=== PATIENT | female | born 1955 | race Caucasian/White ===

== ENCOUNTER 2017-03-27 16:09 | Emergency (ER) | payer OTHER ==
--- NOTE | 2017-03-27 17:09 | DIAGNOSTIC IMAGING REPORT ---
PROCEDURE: XR WRIST MIN 3 VIEWS - LEFT INDICATION: PAIN TECHNIQUE: Five views of the left wrist. COMPARISON: None. FINDINGS: Normal mineralization. No fractures. Normal osseous alignment. No suspicious soft-tissue calcification or radiodense foreign bodies. IMPRESSION: 1. Intact left wrist.
--- NOTE | 2017-03-27 17:40 | ED ORDER SUMMARY ---
..... Patient: BERTHA TOSCANO OrderSheet [facility] VisitID: [id number] [address] [place] [address] 62y, F Registration Date/Time: 03/27/2017 ORDER SHEET Weight: 89.8 kg (stated) Allergies: GENERAL ORDERS: Wrist 3 or 4V Left Urgent (16:45 03/27/2017 Alex Hodgson) (Ack 16:46 Rashidrmichel) (16:58 Jer) Splint (UE) (Left) (Cock-up) (17:39 03/27/2017 Alex Hodgson) (17:58 Julienne R.N.) MEDICATION ORDERS: Toradol IM 60 mg (NOW) (16:45 03/27/2017 Alex Hodgson) (17:04 Joanna Núñez.NNoe) IV FLUIDS: ORDER SHEET NOTES: [Electronically signed by Cam Carrasco Dr. (17:45 03/27/2017)] [Electronically signed by Melissa Pompa R.N. (19:18 03/27/2017)] [Electronically locked/signed by Melissa Pompa R.N. (19:18 03/27/2017)]
--- NOTE | 2017-03-27 17:40 | ED CLINICAL REPORT ---
Clinical Report - Physicians/Mid Levels [facility] [address] [place] [address] 03/27/2017 16:11 [id number] Time Seen: 16:19; initial patient contact. Arrived- By private vehicle. Historian- patient. HISTORY OF PRESENT ILLNESS Chief Complaint: Injury to the wrist and left hand. The injury happened about 6 weeks ago. (No injury). Patient is experiencing moderate pain that has recently become worse. Patient denies injury to the head or neck. REVIEW OF SYSTEMS The patient has had swelling. No tingling, numbness or weakness. All systems otherwise negative, except as recorded above. PAST HISTORY Dvt. Thyroid Disease. Hypertension. Diabetes Mellitus. Depression. SURGERIES: Pituitary tumor removed. Tonsillectomy. ADDITIONAL NOTES The nursing notes have been reviewed. PHYSICAL EXAM Vital Signs: 03/27/2017 16:16 BP: 164/61. HR: 51. RR: 16. O2 saturation: 96%. Temp: 98.3 F. Pain level now: 07/01. Have been reviewed. Hypertensive. Bradycardic. Respiratory rate normal. Temperature normal. Oxygen saturation normal. Appearance: Alert. Oriented X3. No acute distress. Skin: Skin warm and dry. Skin intact. Extremities: Left wrist: moderate tenderness and mild swelling located in the area of the ulnar styloid. Limited ROM secondary to pain (diminished flexion and extension, ulnar deviation and radial deviation). Neurovascular intact distally. No erythema. Hand and wrist exam otherwise negative. Extremities otherwise negative. Neuro, Vascular and Tendons: Vascular status intact. Sensation intact. Motor intact. Tendon function intact. Neuro: Oriented X 3. No motor deficit. No sensory deficit. LABS, X-RAYS, AND EKG Lt Wrist X-ray: (Intact left wrist.). Views: AP, lateral, oblique and scaphoid. Technique: good. The X-rays were independently viewed by me, interpreted by the radiologist and discussed with the radiologist. Prior films were not available for comparison. PROGRESS AND PROCEDURES Disposition: Discharged home in good and improved condition. Condition: good. CLINICAL IMPRESSION Acute inflammatory tendonitis in the left wrist. INSTRUCTIONS Apply ice for 20 minutes five times a day until better. Don't apply ice directly to skin. Wear cock-up splint until released. Limit use of your left hand until released. Your Current Medications: CONTINUE TAKING THE FOLLOWING MEDICATIONS: Aspirin Oral : Tablet Chewable 81 mg, 1 tablet. Atenolol Oral : Tablet 50 mg, 1 tablet daily. Atorvastatin Calcium Oral : Tablet 80 mg, 1 tablet daily. Calcium* : 500 mg 3x a day. FLUoxetine HCl Oral : Capsule 20 mg, 1 capsule 3x a day. Gabapentin Oral : Capsule 300 mg, 2x a day. HCTZ* : 12.5mg daily. HumaLOG Subcutaneous. Lantus Subcutaneous : 48 units every PM. Levothyroxine Sodium Oral : Tablet 25 mcg, daily. Naproxen Oral : Tablet 500 mg, PRN. Pantoprazole Sodium Oral : Packet 40 mg, daily. TraZODone HCl Oral : Tablet 100 mg, 1-1/2 tablets at bedtime. Vicodin Oral : PRN. Vitamin B 12 Oral : 1000mcg daily. Vitamin D3 Oral : Tablet 2000 unit, 1 tablet daily. Zolpidem Tartrate Oral : Solution 5 mg/act, at bedtime, prn. Prescription Medications: Diclofenac 50 mg tablets: take 1 tablet orally every 8 hours as needed for pain or stiffness. Dispense thirty (30). No refill. Follow-up: Blood pressure screening was not performed during this visit because the patient has an active diagnosis of hypertension. [facility] , [address] [facility] [address] Follow up in about four days. Call for an appointment. (Electronically signed by Cam Carrasco Dr. 03/27/2017 17:45)
--- NOTE | 2017-03-27 17:40 | ED CLINICAL REPORT ---
Clinical Report - Physicians/Mid Levels [facility] [address] [place] [address] 03/27/2017 16:11 [id number] Time Seen: 16:19; initial patient contact. Arrived- By private vehicle. Historian- patient. HISTORY OF PRESENT ILLNESS Chief Complaint: Injury to the wrist and left hand. The injury happened about 6 weeks ago. (No injury). Patient is experiencing moderate pain that has recently become worse. Patient denies injury to the head or neck. REVIEW OF SYSTEMS The patient has had swelling. No tingling, numbness or weakness. All systems otherwise negative, except as recorded above. PAST HISTORY Dvt. Thyroid Disease. Hypertension. Diabetes Mellitus. Depression. SURGERIES: Pituitary tumor removed. Tonsillectomy. ADDITIONAL NOTES The nursing notes have been reviewed. PHYSICAL EXAM Vital Signs: 03/27/2017 16:16 BP: 164/61. HR: 51. RR: 16. O2 saturation: 96%. Temp: 98.3 F. Pain level now: 07/01. Have been reviewed. Hypertensive. Bradycardic. Respiratory rate normal. Temperature normal. Oxygen saturation normal. Appearance: Alert. Oriented X3. No acute distress. Skin: Skin warm and dry. Skin intact. Extremities: Left wrist: moderate tenderness and mild swelling located in the area of the ulnar styloid. Limited ROM secondary to pain (diminished flexion and extension, ulnar deviation and radial deviation). Neurovascular intact distally. No erythema. Hand and wrist exam otherwise negative. Extremities otherwise negative. Neuro, Vascular and Tendons: Vascular status intact. Sensation intact. Motor intact. Tendon function intact. Neuro: Oriented X 3. No motor deficit. No sensory deficit. LABS, X-RAYS, AND EKG Lt Wrist X-ray: (Intact left wrist.). Views: AP, lateral, oblique and scaphoid. Technique: good. The X-rays were independently viewed by me, interpreted by the radiologist and discussed with the radiologist. Prior films were not available for comparison. PROGRESS AND PROCEDURES Disposition: Discharged home in good and improved condition. Condition: good. CLINICAL IMPRESSION Acute inflammatory tendonitis in the left wrist. INSTRUCTIONS Apply ice for 20 minutes five times a day until better. Don't apply ice directly to skin. Wear cock-up splint until released. Limit use of your left hand until released. Your Current Medications: CONTINUE TAKING THE FOLLOWING MEDICATIONS: Aspirin Oral : Tablet Chewable 81 mg, 1 tablet. Atenolol Oral : Tablet 50 mg, 1 tablet daily. Atorvastatin Calcium Oral : Tablet 80 mg, 1 tablet daily. Calcium* : 500 mg 3x a day. FLUoxetine HCl Oral : Capsule 20 mg, 1 capsule 3x a day. Gabapentin Oral : Capsule 300 mg, 2x a day. HCTZ* : 12.5mg daily. HumaLOG Subcutaneous. Lantus Subcutaneous : 48 units every PM. Levothyroxine Sodium Oral : Tablet 25 mcg, daily. Naproxen Oral : Tablet 500 mg, PRN. Pantoprazole Sodium Oral : Packet 40 mg, daily. TraZODone HCl Oral : Tablet 100 mg, 1-1/2 tablets at bedtime. Vicodin Oral : PRN. Vitamin B 12 Oral : 1000mcg daily. Vitamin D3 Oral : Tablet 2000 unit, 1 tablet daily. Zolpidem Tartrate Oral : Solution 5 mg/act, at bedtime, prn. Prescription Medications: Diclofenac 50 mg tablets: take 1 tablet orally every 8 hours as needed for pain or stiffness. Dispense thirty (30). No refill. Follow-up: Blood pressure screening was not performed during this visit because the patient has an active diagnosis of hypertension. [facility] with: [facility], , [address] [facility], [address] Follow up in about four days. Call for an appointment. (Electronically signed by Cam Carrasco Dr. 03/27/2017 17:45)
--- NOTE | 2017-03-27 17:40 | ED NURSING NOTES ---
Clinical Report - Nurses [facility] [address] [place] [address] 03/27/2017 16:11 [id number] Triage time 16:15 Mar 27 2017. Acuity: LEVEL 3. Chief Complaint: RIGHT UPPER EXTREMITY PAIN and SWELLING. LEFT UPPER EXTREMITY PAIN and SWELLING. Alert. No acute distress. SEPSIS SCREEN: Sepsis Screen. Negative (no infection suspected/documented). --16:36 Veronica Stock R.N. 16:16 03/27/17. BP: 164/61. HR: 51. RR: 16. O2 saturation: 96%. Temp: 98.3 F. Pain level now: 07/01. --16:36 Veronica Stock R.N. Weight: 89.8 kg stated. Height/Length: 64.7 inches Per Patient. BMI: 33.3. --16:36 Veronica Stock R.N. Medications Vicodin Oral, PRN. --16:23 Veronica Stock R.N. Aspirin Oral (Tablet Chewable 81 mg) 1 tablet. --16:23 Veronica Stock R.N. Atenolol Oral (Tablet 50 mg) 1 tablet, daily. --16:24 Veronica Stock R.N. Atorvastatin Calcium Oral (Tablet 80 mg) 1 tablet, daily. --16:24 Veronica Stock R.N. Calcium 500 mg, 3x a day. --16:24 Veronica Stock R.N. FLUoxetine HCl Oral (Capsule 20 mg) 1 capsule, 3x a day. --16:25 Veronica Stock R.N. Gabapentin Oral (Capsule 300 mg), 2x a day. --16:25 Veronica Stock R.N. HumaLOG Subcutaneous. --16:26 Veronica Stock R.N. Lantus Subcutaneous 48 units, every PM. --16:27 Veronica Stock R.N. Levothyroxine Sodium Oral (Tablet 25 mcg), daily. --16:27 Veronica Stock R.N. Naproxen Oral (Tablet 500 mg), PRN. --16:27 Veronica Stock R.N. HCTZ 12.5mg, daily. --16:28 Veronica Stock R.N. Pantoprazole Sodium Oral (Packet 40 mg), daily. --16:29 Veronica Stock R.N. Vitamin B 12 Oral 1000mcg, daily. --16:29 Veronica Stock R.N. Vitamin D3 Oral (Tablet 2000 unit) 1 tablet, daily. --16:29 Veronica Stock R.N. Zolpidem Tartrate Oral (Solution 5 mg/act), at bedtime as needed. --16:30 Veronica Stock R.N. TraZODone HCl Oral (Tablet 100 mg) 1-1/2 tablets, at bedtime. --16:30 Veronica Stock R.N. History Arrived by private vehicle. Historian: patient. Accompanied by family. This occurred (about 3 months). It is described as radiating to the right upper extremity, wrist and hand and left upper extremity, upper arm, elbow, wrist and hand. ( pt states for the last 3 months she has had pain in swelling in wrist with no injury. patient states that the last 3 weeks it has been increasing.). She has had pain-related weakness. Treatment [employer]: (naproxen, ice, splint, ibuprofen icy hot, vicodin). PAST MEDICAL HX: Tetanus status: unknown. Immunizations: up-to-date. The patient is post-menopausal. Denies current . SOCIAL HX: Never smoker. No alcohol use or drug use. No infectious disease exposure. SELF HARM ASSESSMENT: A self harm assessment was performed. The patient answered "no" to the question "Do you have thoughts of harming or killing yourself?" and "Have you recently had thoughts about harming or killing others?". FALL RISK ASSESSMENT: Fall risk assessment completed. No fall risk identified. NUTRITIONAL RISK ASSESSMENT: The nutritional risk assessment revealed no deficiencies. FUNCTIONAL ASSESSMENT: Functional assessment: no impairments noted. LEARNING NEEDS ASSESSMENT: The learning needs assessment revealed no barriers. ABUSE ASSESSMENT: Abuse assessment: The patient was asked "Do you feel safe in your home?". SKIN INTEGRITY ASSESSMENT: Skin integrity risk assessment completed. No skin integrity risk identified. --16:36 Veronica Stock R.N. PROBLEMS: Dvt. Thyroid Disease. Hypertension. Diabetes Mellitus. Depression. --16:33 Veronica Stock R.N. ADDITIONAL SURGERIES: Pituitary tumor removed. Tonsillectomy. --16:33 Veronica Stock R.N. Interventions ID band on patient. To room. --16:36 Veronica Stock R.N. PHYSICAL ASSESSMENT Ambulatory to room. GENERAL / NEURO / PSYCH: Oriented X 4. Appears in pain. She has had pain-related weakness. EXTREMITIES: Limited ROM present in the right wrist and right hand and left wrist and left hand. Bilateral edema of the upper extremities involving both hands. Right wrist: tenderness and swelling. Left wrist: tenderness and swelling. SKIN: Skin is warm and dry. --16:37 Veronica Stock R.N. NURSING PROGRESS NOTES Extremity elevated. Patient identifiers checked. Call light placed in reach. Side rails up x 1. Bed placed in lowest position. Brakes of bed on. --16:37 Veronica Stock R.N. 17:04 03/27/2017 Toradol (Ketorolac Tromethamine) IM 60 mg given. Given in the right ventral gluteus. Allergies verified and confirmed 5 rights. --17:04 Veronica Stock R.N. 17:50. Reassessment after splinting. She is calm. Overall patient status is the same- she states feels the same (velcro cock-up splint applied to left wrist by EDT). GENERAL / NEURO / PSYCH: Alert. Oriented X 4. RESPIRATORY: No respiratory distress. SKIN: Skin is warm and dry. --19:16 Melissa Pompa R.N. DISPOSITION / DISCHARGE Departure time: 1750. Condition at departure: stable. No learning barriers present. Discharge instructions provided and reviewed with the patient and spouse. Reviewed medication(s). Prescription(s) given to the patient. Patient and spouse verbalized understanding. Written instructions provided in Trinidadian. The patient was discharged home and accompanied by spouse. She left the Emergency Department ambulatory and via private vehicle. FALL RISK ASSESSMENT: Fall risk assessment completed. No fall risk identified. --19:15 Melissa Pompa R.N. 17:50 03/27/17. BP: 134/58. HR: 50. RR: 16. O2 saturation: 96% on room air. Pain level now: 01/29. --19:15 Melissa Pompa R.N. Locked/Released at 03/27/2017 19:18 by Melissa Pompa R.N.
--- NOTE | 2017-03-27 17:40 | ED ORDER SUMMARY ---
..... Patient: BERTHA TOSCANO OrderSheet [facility] VisitID: [id number] [address] [place] [address] 62y, F Registration Date/Time: 03/27/2017 ORDER SHEET Weight: 89.8 kg (stated) Allergies: GENERAL ORDERS: Wrist 3 or 4V Left Urgent (16:45 03/27/2017 Alex Hodgson) (Ack 16:46 Rashidrmichel) (16:58 Jer) Splint (UE) (Left) (Cock-up) (17:39 03/27/2017 Alex Hodgson) (17:58 Julienne R.N.) MEDICATION ORDERS: Toradol IM 60 mg (NOW) (16:45 03/27/2017 Alex Hodgson) (17:04 Joanna Núñez.NNoe) IV FLUIDS: ORDER SHEET NOTES: [Electronically signed by Cam Carrasco Dr. (17:45 03/27/2017)] [Electronically signed by Melissa Pompa R.N. (19:18 03/27/2017)] [Electronically locked/signed by Melissa Pompa R.N. (19:18 03/27/2017)]
--- NOTE | 2017-03-27 19:18 | ED MED RECONCILIATION SUMMARY ---
Patient: BERTHA TOSCANO Medication Reconciliation Report [facility] VisitID: [id number] [address] [place] [address] 62y, F Registration Date/Time: 03/27/2017 Weight: 89.8 kg Height/Length: 60 in. BMI: 33.3 ALLERGIES: The patient's Home Medications are listed below: CONTINUE TAKING THE FOLLOWING MEDICATIONS: Aspirin Oral (81 mg) 1 tablet Atenolol Oral (50 mg) 1 tablet, daily Atorvastatin Calcium Oral (80 mg) 1 tablet, daily Calcium 500 mg, 3x a day FLUoxetine HCl Oral (20 mg) 1 capsule, 3x a day Gabapentin Oral (300 mg), 2x a day HCTZ 12.5mg, daily HumaLOG Subcutaneous Lantus Subcutaneous 48 units, every PM Levothyroxine Sodium Oral (25 mcg), daily Naproxen Oral (500 mg), PRN Pantoprazole Sodium Oral (40 mg), daily TraZODone HCl Oral (100 mg) 1-1/2 tablets, at bedtime Vicodin Oral, PRN Vitamin B 12 Oral 1000mcg, daily Vitamin D3 Oral (2000 unit) 1 tablet, daily Zolpidem Tartrate Oral (5 mg/act), at bedtime The source(s) of the original Home Medication information: Not obtained. The following Medications were given to the patient in the Emergency Department: Toradol [IM] IM 60 mg, administered: 03/27/2017 5:04:00 PM The following Medications were prescribed to the patient: Diclofenac 50 mg tablets: take 1 tablet orally every 8 hours as needed for pain or stiffness. Dispense thirty (30). No refill. -- Cam Carrasco Dr.
--- NOTE | 2017-03-27 19:18 | ED MED RECONCILIATION SUMMARY ---
Patient: BERTHA TOSCANO Medication Reconciliation Report [facility] VisitID: [id number] [address] [place] [address] 62y, F Registration Date/Time: 03/27/2017 Weight: 89.8 kg Height/Length: 60 in. BMI: 33.3 ALLERGIES: The patient's Home Medications are listed below: CONTINUE TAKING THE FOLLOWING MEDICATIONS: Aspirin Oral (81 mg) 1 tablet Atenolol Oral (50 mg) 1 tablet, daily Atorvastatin Calcium Oral (80 mg) 1 tablet, daily Calcium 500 mg, 3x a day FLUoxetine HCl Oral (20 mg) 1 capsule, 3x a day Gabapentin Oral (300 mg), 2x a day HCTZ 12.5mg, daily HumaLOG Subcutaneous Lantus Subcutaneous 48 units, every PM Levothyroxine Sodium Oral (25 mcg), daily Naproxen Oral (500 mg), PRN Pantoprazole Sodium Oral (40 mg), daily TraZODone HCl Oral (100 mg) 1-1/2 tablets, at bedtime Vicodin Oral, PRN Vitamin B 12 Oral 1000mcg, daily Vitamin D3 Oral (2000 unit) 1 tablet, daily Zolpidem Tartrate Oral (5 mg/act), at bedtime The source(s) of the original Home Medication information: Not obtained. The following Medications were given to the patient in the Emergency Department: Toradol [IM] IM 60 mg, administered: 03/27/2017 5:04:00 PM The following Medications were prescribed to the patient: Diclofenac 50 mg tablets: take 1 tablet orally every 8 hours as needed for pain or stiffness. Dispense thirty (30). No refill. -- Cam Carrasco Dr.
--- NOTE | 2017-03-27 19:18 | ED DISCHARGE INSTRUCTIONS ---
Patient: BERTHA TOSCANO General Instructions [facility] VisitID: [id number] [address] [place] [address] 62y, F Registration Date/Time: 03/27/2017 Acute inflammatory tendonitis in the left wrist. INSTRUCTIONS Apply ice for 20 minutes five times a day until better. Don't apply ice directly to skin. Wear cock-up splint until released. Limit use of your left hand until released. Your Current Medications: CONTINUE TAKING THE FOLLOWING MEDICATIONS: Aspirin Oral : Tablet Chewable 81 mg, 1 tablet. Atenolol Oral : Tablet 50 mg, 1 tablet daily. Atorvastatin Calcium Oral : Tablet 80 mg, 1 tablet daily. Calcium* : 500 mg 3x a day. FLUoxetine HCl Oral : Capsule 20 mg, 1 capsule 3x a day. Gabapentin Oral : Capsule 300 mg, 2x a day. HCTZ* : 12.5mg daily. HumaLOG Subcutaneous. Lantus Subcutaneous : 48 units every PM. Levothyroxine Sodium Oral : Tablet 25 mcg, daily. Naproxen Oral : Tablet 500 mg, PRN. Pantoprazole Sodium Oral : Packet 40 mg, daily. TraZODone HCl Oral : Tablet 100 mg, 1-1/2 tablets at bedtime. Vicodin Oral : PRN. Vitamin B 12 Oral : 1000mcg daily. Vitamin D3 Oral : Tablet 2000 unit, 1 tablet daily. Zolpidem Tartrate Oral : Solution 5 mg/act, at bedtime, prn. Prescription Medications: Diclofenac 50 mg tablets: take 1 tablet orally every 8 hours as needed for pain or stiffness. Dispense thirty (30). No refill. Follow-up: Blood pressure screening was not performed during this visit because the patient has an active diagnosis of hypertension. Follow[facility]up with: [facility], , [address], [place], [address] Follow up in about four days. Call for an appointment. ADDITIONAL INFORMATION Tendonitis A tendon is the thick fibrous cord that joins muscle to bone and causes joints to move. Tendonitis is inflammation of the tendon which may be due to overuse, injury or infection. This usually involves the shoulders, forearm, wrist, hands and foot. Symptoms include local pain, swelling and tenderness to the touch. Movement of the involved joint increases the pain. Tendonitis requires about 4 to 6 weeks to heal. It is treated by preventing motion of the tendon with a splint or brace and use of anti-inflammatory medicine. Home Care: Apply an ice pack (ice cubes in a plastic bag, wrapped in a towel) over the injured area for 20 minutes every 1-2 hours the first day for pain relief. Continue this 3-4 times a day until the pain and swelling goes away. Rest the inflamed joint and protect it from movement. You may use ibuprofen (Motrin, Advil) or naproxen (Aleve, Naprosyn) to treat pain and inflammation, unless another medicine was prescribed. If you can't take these medicines, acetaminophen (Tylenol) may help with the pain, but does not treat inflammation. [NOTE : If you have chronic liver or kidney disease or ever had a stomach ulcer or GI bleeding, talk with your doctor before using these medicines.] As your symptoms improve, begin gradual motion at the involved joint. Follow Up With Your Doctor If Not Improving After The First Five Days Of Treatment. Get Prompt Medical Attention If Any Of The Following Occur: Redness over the painful area Increasing pain or swelling at the joint Fever of 100.4F (38C) or higher, or as directed by your healthcare provider Wrist Splint: Velcro A splint is designed to prevent movement of the bones, muscles and tendons of the wrist. Velcro wrist splints are used because of their comfort and convenience. In certain conditions, the splint can be removed when bathing or changing clothes. The condition you are being treated for will determine how long you should wear the splint and if it is safe to remove your splint before your next visit. If you are unsure, ask your nurse or doctor. Get Prompt Medical Attention if any of the following occur: -- Increased pain or swelling under the splint or in the hand or fingers -- Fingers or hand becomes cold, blue, numb or tingly You have been given the following additional information: Tendonitis Wrist Splint, Velcro Limit use of your left hand until released. (Electronically signed by Cam Carrasco Dr. 03/27/2017 17:45)
--- NOTE | 2017-03-27 19:18 | ED MAR SUMMARY ---
..... Medication Administration Record [facility] [address] [place] [address] Patient: BERTHA TOSCANO Visit ID: [id number] 62y, F Weight: 89.8 kg Height/Length: 64.7 in BMI: 33.3 ALLERGIES: Given 17:04 03/27/2017 Veronica Stock R.N. Medication Administered: TORADOL [IM] (KETOROLAC TROMETHAMINE), Dose: 60 mg IM. Medication Ordered: Toradol IM 60 mg (NOW).
--- NOTE | 2017-03-27 19:18 | ED DISCHARGE INSTRUCTIONS ---
Patient: BERTHA TOSCANO General Instructions [facility] VisitID: [id number] [address] [place] [address] 62y, F Registration Date/Time: 03/27/2017 Acute inflammatory tendonitis in the left wrist. INSTRUCTIONS Apply ice for 20 minutes five times a day until better. Don't apply ice directly to skin. Wear cock-up splint until released. Limit use of your left hand until released. Your Current Medications: CONTINUE TAKING THE FOLLOWING MEDICATIONS: Aspirin Oral : Tablet Chewable 81 mg, 1 tablet. Atenolol Oral : Tablet 50 mg, 1 tablet daily. Atorvastatin Calcium Oral : Tablet 80 mg, 1 tablet daily. Calcium* : 500 mg 3x a day. FLUoxetine HCl Oral : Capsule 20 mg, 1 capsule 3x a day. Gabapentin Oral : Capsule 300 mg, 2x a day. HCTZ* : 12.5mg daily. HumaLOG Subcutaneous. Lantus Subcutaneous : 48 units every PM. Levothyroxine Sodium Oral : Tablet 25 mcg, daily. Naproxen Oral : Tablet 500 mg, PRN. Pantoprazole Sodium Oral : Packet 40 mg, daily. TraZODone HCl Oral : Tablet 100 mg, 1-1/2 tablets at bedtime. Vicodin Oral : PRN. Vitamin B 12 Oral : 1000mcg daily. Vitamin D3 Oral : Tablet 2000 unit, 1 tablet daily. Zolpidem Tartrate Oral : Solution 5 mg/act, at bedtime, prn. Prescription Medications: Diclofenac 50 mg tablets: take 1 tablet orally every 8 hours as needed for pain or stiffness. Dispense thirty (30). No refill. Follow-up: Blood pressure screening was not performed during this visit because the patient has an active diagnosis of hypertension. Follow-up with: [facility], , [address], [place], [address] Follow up in about four days. Call for an appointment. ADDITIONAL INFORMATION Tendonitis A tendon is the thick fibrous cord that joins muscle to bone and causes joints to move. Tendonitis is inflammation of the tendon which may be due to overuse, injury or infection. This usually involves the shoulders, forearm, wrist, hands and foot. Symptoms include local pain, swelling and tenderness to the touch. Movement of the involved joint increases the pain. Tendonitis requires about 4 to 6 weeks to heal. It is treated by preventing motion of the tendon with a splint or brace and use of anti-inflammatory medicine. Home Care: Apply an ice pack (ice cubes in a plastic bag, wrapped in a towel) over the injured area for 20 minutes every 1-2 hours the first day for pain relief. Continue this 3-4 times a day until the pain and swelling goes away. Rest the inflamed joint and protect it from movement. You may use ibuprofen (Motrin, Advil) or naproxen (Aleve, Naprosyn) to treat pain and inflammation, unless another medicine was prescribed. If you can't take these medicines, acetaminophen (Tylenol) may help with the pain, but does not treat inflammation. [NOTE : If you have chronic liver or kidney disease or ever had a stomach ulcer or GI bleeding, talk with your doctor before using these medicines.] As your symptoms improve, begin gradual motion at the involved joint. Follow Up With Your Doctor If Not Improving After The First Five Days Of Treatment. Get Prompt Medical Attention If Any Of The Following Occur: Redness over the painful area Increasing pain or swelling at the joint Fever of 100.4F (38C) or higher, or as directed by your healthcare provider Wrist Splint: Velcro A splint is designed to prevent movement of the bones, muscles and tendons of the wrist. Velcro wrist splints are used because of their comfort and convenience. In certain conditions, the splint can be removed when bathing or changing clothes. The condition you are being treated for will determine how long you should wear the splint and if it is safe to remove your splint before your next visit. If you are unsure, ask your nurse or doctor. Get Prompt Medical Attention if any of the following occur: -- Increased pain or swelling under the splint or in the hand or fingers -- Fingers or hand becomes cold, blue, numb or tingly You have been given the following additional information: Tendonitis Wrist Splint, Velcro Limit use of your left hand until released. (Electronically signed by Cam Carrasco Dr. 03/27/2017 17:45)
--- NOTE | 2017-03-27 19:18 | ED MAR SUMMARY ---
..... Medication Administration Record [facility] [address] [place] [address] Patient: BERTHA TOSCANO Visit ID: [id number] 62y, F Weight: 89.8 kg Height/Length: 64.7 in BMI: 33.3 ALLERGIES: Given 17:04 03/27/2017 Veronica Stock R.N. Medication Administered: TORADOL [IM] (KETOROLAC TROMETHAMINE), Dose: 60 mg IM. Medication Ordered: Toradol IM 60 mg (NOW).
== END 2017-03-27 17:50 | disposition home or self-care (01) ==
LOC: ED SRH 16:09
DX: M65.842 Other synovitis and tenosynovitis, left hand (principal); I10 Essential (primary) hypertension; E11.9 Type 2 diabetes mellitus without complications; X58.XXXA Exposure to other specified factors, initial encounter